=== PATIENT | male | born 1970 | race Caucasian/White ===

== ENCOUNTER 2023-07-19 06:15 | Day surgery (SDC) | payer OTHER, SELFPAY ==
[2023-07-13 08:09] VITALS: BMI 26.0
[2023-07-19] VITALS (8 sets, daily range): BP systolic 113–145; BP diastolic 63–94; BMI 26.0
[2023-07-19] MEDS: NORMOSOL-R 1000 IV (08:42)
== END 2023-07-19 13:06 | disposition home or self-care (01) ==
LOC: SDS 06:15
PROVIDERS: ATTENDING PHYSICIAN Specialist; FAMILY PHYSICIAN Internal Medicine
DX: M77.11 Lateral epicondylitis, right elbow (principal)
CPT/HCPCS: 24359; 36415; 93005